=== PATIENT | male | born 1990 | race African-American/Black ===

== ENCOUNTER 2016-09-21 02:18 | Emergency (ER) | payer OTHER ==
--- NOTE | ~2016-09-21 | CR127 ---
[facility] A Service of [facility] & [facility] RADIOLOGY TEXT RESULTS PATIENT: MICHELLE LOPEZ LOCATION: [facility] : [birth year] UNIT #: [id number] AGE: [address]: Izabel Phipps APRN SEX: M ORDER DR: [id number] [facility] [address] [place], [place] [address] [id number] MR#: [id number] Acc #: [id number] NAME: MICHELLE LOPEZ : 1990 SEX: M STUDY DATE/TIME: 09/21/2016 2:42 UNIT: [facility] ROOM: STUDY DESCRIPTION: CR Foot Complete Min 3 View Rt Attending Physician: Izabel Phipps A.P.R.N. Ordering Physician: Izabel Phipps A.P.R.N. Primary Care Physician: Primary Care Physician No MEDICAL IMAGING REPORT This report is preliminary unless electronic signature is present EXAM Right foot series INDICATION Right foot pain after an injury tonight. PROCEDURE 3 views of the right foot. COMPARISON None FINDINGS No acute fracture or dislocation. IMPRESSION No acute findings. Dictated by... Femi Schrader M.D. THIS IS AN ELECTRONICALLY VERIFIED REPORT Femi Schrader M.D. at 09/21/2016 10:08 PM Ida TD: 09/21/2016 11:00 JOB #: [id number] MEDICAL IMAGING REPORT Page 1 of 1 COPY
--- NOTE | ~2016-09-21 | CR21 ---
[facility] A Service of [facility] & [facility] RADIOLOGY TEXT RESULTS PATIENT: MICHELLE LOPEZ LOCATION: [facility] : [birth year] UNIT #: [id number] AGE: [address]: Izabel Phipps APRN SEX: M ORDER DR: [id number] [facility] [address] [place], [place] [address] [id number] MR#: [id number] Acc #: [id number] NAME: MICHELLE LOPEZ : 1990 SEX: M STUDY DATE/TIME: 09/21/2016 2:40 UNIT: [facility] ROOM: STUDY DESCRIPTION: CR Ankle Min 3 Views Rt Attending Physician: Izabel Phipps A.P.R.N. Ordering Physician: Izabel Phipps A.P.R.N. Primary Care Physician: Primary Care Physician No MEDICAL IMAGING REPORT This report is preliminary unless electronic signature is present EXAM Right ankle series INDICATION Right ankle pain after an injury tonight. PROCEDURE 3 views right ankle COMPARISON None FINDINGS Ankle mortise intact. No acute fracture. No dislocation. IMPRESSION No acute findings. Dictated by... Femi Schrader M.D. THIS IS AN ELECTRONICALLY VERIFIED REPORT Femi Schrader M.D. at 09/21/2016 10:08 PM Ida TD: 09/21/2016 10:59 JOB #: [id number] MEDICAL IMAGING REPORT Page 1 of 1 COPY
== END 2016-09-21 03:25 | disposition home or self-care (01) ==
LOC: CED 02:18
DX: S90.31XA Contusion of right foot, initial encounter (principal); F17.200 Nicotine dependence, unspecified, uncomplicated; W20.8XXA Other cause of strike by thrown, projected or falling object, initial encounter
CPT/HCPCS: 29540; 73610; 73630; 99283